=== PATIENT | female | born 1955 | race Caucasian/White ===

== ENCOUNTER 2020-12-03 10:39 | Inpatient (IN) | payer OTHER ==
[~2020-12-03] VITALS: Ht 144.8 cm; Wt 126.6 kg
--- NOTE | 2020-12-03 10:39 | NUR ---
[facility]
[2020-12-03 10:51] VITALS: BP 82/37
[2020-12-03 11:13] LABS: BASOPHILS # (AUTO) 0.1 K/uL (0.00-0.22); EOSINOPHILS # (AUTO) 0.2 K/uL (0-0.4); EOSINOPHILS % (AUTO) 2.5 % (0.0-4.0); HEMATOCRIT 33.8 % (36-48); HEMOGLOBIN 10.3 g/dL (12.0-16.0); LYMPHOCYTES # (AUTO) 1.4 K/uL (2.5-16.5); LYMPHOCYTES % (AUTO) 16.6 % (20.5-51.1); MEAN CORPUSCULAR HEMOGLOBIN 24 pg (27-31); MEAN CORPUSCULAR HGB CONC 30 g/dL (33-37); MEAN CORPUSCULAR VOLUME 77.2 fL (80-94); MONOCYTES # (AUTO) 0.6 K/uL (0.8-1.0); MONOCYTES % (AUTO) 6.8 % (1.7-9.3); NEUTROPHILS # (AUTO) 6.3 K/uL (1.8-7.7); NEUTROPHILS % (AUTO) 73.1 % (42.2-75.2); PLATELET COUNT (AUTO) 167 K/uL (140-450); RED BLOOD CELL COUNT(AUTO) 4.38 MIL/uL (4.20-5.40); RED CELL DISTRIBUTION WIDTH 18.2 % (11.6-13.7); WHITE BLOOD COUNT (AUTO) 8.7 K/uL (4.8-10.8)
[2020-12-03 11:29] LABS: ANION GAP 9.7 (8-16); CARBON DIOXIDE 34.4 mmol/L (21-32); CREATININE 1.1 mg/dL (0.6-1.3); POTASSIUM 4.1 mmol/L (3.5-5.1); TOTAL BILIRUBIN 0.8 mg/dL (0.0-1.0)
[2020-12-03] MEDS ORDERED: ASPI-1822 PO (11:33)
[2020-12-03] MEDS ORDERED: ROPI2TER PO (11:33)
[2020-12-03] MEDS ORDERED: POTA10TE30 PO (11:33)
[2020-12-03] MEDS ORDERED: LOSA100T1 PO (11:33)
[2020-12-03] MEDS ORDERED: SIMV20TA1 PO (11:33)
[2020-12-03] MEDS ORDERED: DETLA4 PO (11:33)
[2020-12-03] MEDS ORDERED: ERGO-30 PO (11:33)
[2020-12-03] MEDS ORDERED: HYDR-5191 PO (11:33)
[2020-12-03] MEDS ORDERED: AMLO10TA PO (11:33)
[2020-12-03] MEDS ORDERED: IBUP-1842 PO (11:33)
[2020-12-03] MEDS ORDERED: ZOLP10TA1 PO (11:33)
[2020-12-03] MEDS ORDERED: GABA300C PO (11:33)
[2020-12-03] MEDS ORDERED: ARIP5TAB8 PO (11:33)
[2020-12-03] MEDS ORDERED: UMEC62.5 IH (11:33)
[2020-12-03] MEDS ORDERED: FLONAS NS (11:33)
[2020-12-03] MEDS ORDERED: SERT100T PO (11:33)
[2020-12-03] MEDS ORDERED: FURO-570 PO (11:33)
--- NOTE | 2020-12-03 11:43 | NUR ---
64 Y/O F BIBA FROM [facility] C/O SOB WITH 02 STAT @75% ON 3L NC. PT WAS PUT ON NON REBREATHER 15L, NOW SAT AT 99%. IN ED, PT IS A&OX4. HEART RATE NORMAL REGULAR RHYTHM. COARSE LUNG SOUNDS ON ALL LUNG CISNEROS. ERMD MADE AWARE OF PT STATUS. PMH: COPD, PULMONARY EDEMA, HEART FAILURE, HTN, HYPERLIPIDEMA, CEREBRAL INFARCTION NKA
[2020-12-03] MEDS ORDERED: methylPREDNISolone SS 125 MG/2 ML VIAL IVP ONE (12:05)
[2020-12-03] MEDS ORDERED: ALBUTEROL SULFATE/IPRATROPIU 3 ML SOL IH ONE ×5 (12:05→13:22)
[2020-12-03] MEDS ORDERED: FUROSEMIDE 100 MG/10 ML VIAL IVP ONE (12:55)
--- NOTE | 2020-12-03 13:09 | NUR ---
RT CALLED FOR ALBUTEROL
--- NOTE | 2020-12-03 13:46 | NUR ---
RT AT BEDSIDE FOR INTERVENTION
[2020-12-03] MEDS ORDERED: ALBUTEROL 0.083% 2.5 MG/3 ML NEBU INH PRN (14:00)
[2020-12-03] MEDS ORDERED: ONDANSETRON 4 MG/2 ML VIAL IVP PRN (14:00)
[2020-12-03] MEDS ORDERED: MORPHINE SULFATE 2 MG/ML SYR IVP PRN (14:00)
--- NOTE | 2020-12-03 14:13 | NUR ---
ELEAZAR COTTO, REQUESTING TO BE CALLED WHEN PT TO BE ADMITTED. CELL NO: [phone]
[2020-12-03] MEDS: FLUTICASONE NASAL 50 MCG/ACTUATION 16 GM BTL NS SCH ×2 (15:46→22:26)
--- NOTE | 2020-12-03 16:27 | NUR ---
BIPAP WAS PLACED AT BEDSIDE FOR USE - TRYING TO CONVINCE PATIENT TO TRY TO WEAR BIPAP DUE TO RESULTS OF ABG. FAMILY TRYING TO CONVINCE PATIENT TO STAY AND TRY TREATMENTS.
--- NOTE | 2020-12-03 16:40 | NUR ---
BIPAP SETTINGS: IPAP- 10, EPAP-5, FIO2-40, RATE-12 O2 SAT- 94%
--- NOTE | 2020-12-03 16:54 | NUR ---
REPORT GIVEN TO AMITA MUSTAFA.
--- NOTE | 2020-12-03 17:22 | NUR ---
TRANSFERRED PT TO THE FLOOR WITH THE RN AND AIDE, PT TRANSFERRED ON NASAL CANNULA AND BIPAP IS PLACED AT BEDSIDE. PT UNDERSTANDS THAT SHE NEEDS TO WEAR THE BIPAP FOR CO2 RETENTION BUT IS NOT HAPPY ABOUT IT AND HAS ALREADY REMOVED IT IN ED ONCE.
--- NOTE | 2020-12-03 17:28 | NUR ---
Patient will be admitted to care of DR FARMER. Admited to TELE. Will go to room 120B. Belongings list completed. Report to AMITA MUSTAFA.
[2020-12-03 17:30] VITALS: BP 108/54
--- NOTE | 2020-12-03 17:30 | NUR ---
PT ARRIVED TO THE UNIT VIA GURNEY. PT IS AWAKE AND ALERT. A&OX4. ON 6L O2 NC WITH O2 SAT AT 90%. BREATHING IS RAPID AND SHALLOW. ON TELE MONITOR, SR. PT IS INCONTINENT. SKIN IS WARM, DRY, AND INTACT. IV IS ON THE RIGHT HAND 20 GAUGE SALINE LOCKED. PT IS STABLE AT THIS TIME.
--- NOTE | 2020-12-03 18:51 | NUR ---
PT IS SITTING UP, EATING IN BED. NO RESPIRATORY DISTRESS NOTED. BREATHING IS UNLABORED. PT IS A&OX4, VERY TALKATIVE. PT IS STABLE.
--- NOTE | 2020-12-03 19:15 | NUR ---
ENDORSED PT TO DAY SHIFT NURSE FOR CONTINUITY OF CARE. PT IS STABLE AT THIS TIME. PLAN OF CARE DISCUSSED.
--- NOTE | 2020-12-03 19:16 | NUR ---
RECEIVED PATIENT FROM AM NURSE FOR CONTINUITY OF CARE. PATIENT IS AWAKE, ALERT AND ORIENT X4. RESTING IN BED, NO SIGN OF DISTRESS. RESPIRATORY EVEN AND UNLABORED, ON 6L OXYGEN NC, O2 SAT 92%. SKIN WARM, DRY, NON DIAPHORETIC. IV ON RIGHT HAND 20G, INTACT AND PATENT, SALINE LOCK. PATIENT IS INCONTINENT, DIAPER DRY AND IN PLACE. PATIENT DENIES ANY PAIN OR DISCOMFORT. ABLE TO MAKE NEED KNOWN. PLAN OF CARE DISCUSSED, PATIENT VERBALIZED UNDERSTANDING. PRECAUTION IN PLACE. HOB ELEVATED. CALL LIGHT WITHIN REACH. WILL CONTINUE TO MONITOR.
--- NOTE | 2020-12-03 19:50 | NUR ---
RT NOTIFIED THAT PATIENT REFUSED TO USE BI PAP. 6L O2 NC IN PLACE. PATIENT IS STABLE. WILL CONTINUE TO MONITOR.
[2020-12-03] MEDS: IPRATROPIUM 0.02% 0.5 MG/2.5 ML NEBU INH SCH (19:55)
[2020-12-03 20:00] VITALS: BP 103/54
--- NOTE | 2020-12-03 20:25 | NUR ---
PATIENT'S DAUGHTER, ELEAZAR CALLED TO UPDATE PATIENT'S CONDITION. SHE CONCERNS THAT PATIENT WILL HAVE BI PAP ORDER. NOTIFIED HER THAT PATIENT REFUSED TO USE BI PAP. STATED SHE WILL CALL AND ENCOURAGE PATIENT TO USE BI PAP. ALL QUESTIONS ANSWER. WILL CONTINUE TO MONITOR PATIENT.
--- NOTE | 2020-12-03 22:04 | NUR ---
TEXT DR FRIAS THAT PATIENT REQUESTS HER AMBIEN AND NORCO HER HOME MEDICATIONS. PER DR FRIAS, RESUME HOME MEDICATIONS WITH AMBIEN 10MG PO HS PRN, AND NORCO 10-325 PO Q6H PRN FOR SEVERE PAIN. WILL FOLLOW ORDER.
[2020-12-03] MEDS: FUROSEMIDE 40 MG/4 ML VIAL IVP SCH (22:26)
[2020-12-03] MEDS: ZOLPIDEM 10 MG TAB PO PRN (22:27)
[2020-12-03] MEDS: HYDROcodone/APAP 10/325 MG 1 TAB TAB PO PRN (22:27)
--- NOTE | 2020-12-03 22:27 | NUR ---
NORCO PRN ADMINISTER WITH EDUCATION, PATIENT REPORTS ACHING PAIN ON HER LEFT KNEE 8/10. PATIENT TOLERATED WELL. NO SIGN OF DISTRESS. PRECAUTION IN PLACE. CALL LIGHT WITHIN REACH. WILL CONTINUE TO MONITOR.
[2020-12-04] VITALS (7 sets, daily range): BP systolic 110–120; BP diastolic 52–73
--- NOTE | 2020-12-04 | NUR ---
ROUND CHECK. PATIENT IS SLEEPING, CHEST RISE AND FALL, BI PAP IN PLACE, NO SIGN OF DISTRESS NOTED. PRECAUTION IN PLACE. CALL LIGHT WITHIN REACH. WILL CONTINUE TO MONITOR.
[2020-12-04] MEDS: IPRATROPIUM 0.02% 0.5 MG/2.5 ML NEBU INH SCH ×4 (01:21→20:35)
--- NOTE | 2020-12-04 02:06 | NUR ---
ROUND CHECK. PATIENT IS SLEEPING, CHEST RISE AND FALL, BI PAP IN PLACE, O2 SAT 95%. NO SIGN OF DISTRESS. PRECAUTION IN PLACE. CALL LIGHT WITHIN REACH. WILL CONTINUE TO MONITOR.
--- NOTE | 2020-12-04 04:00 | NUR ---
ASSIST AUTOMOTIVE ASSEMBLER TO CHANGE PATIENT. PATIENT TOLERATED WELL. NO SIGN OF DISTRESS NOTED. PRECAUTION IN PLACE. CALL LIGHT WITHIN REACH. WILL CONTINUE TO MONITOR.
--- NOTE | 2020-12-04 06:10 | NUR ---
PATIENT AWAKE, RESTING IN BED, NO SIGN OF DISTRESS NOTED. PRECAUTION IN PLACE. WILL CONTINUE TO MONITOR.
[2020-12-04 06:59] LABS: BASOPHILS % (AUTO) 0.2 % (0.0-2.0); HEMATOCRIT 34.3 % (36-48); HEMOGLOBIN 10.5 g/dL (12.0-16.0); LYMPHOCYTES # (AUTO) 0.9 K/uL (2.5-16.5); LYMPHOCYTES % (AUTO) 10.5 % (20.5-51.1); MEAN CORPUSCULAR HEMOGLOBIN 23 pg (27-31); MEAN CORPUSCULAR HGB CONC 31 g/dL (33-37); MEAN CORPUSCULAR VOLUME 76.1 fL (80-94); MONOCYTES # (AUTO) 0.5 K/uL (0.8-1.0); MONOCYTES % (AUTO) 5.3 % (1.7-9.3); NEUTROPHILS # (AUTO) 7.4 K/uL (1.8-7.7); PLATELET COUNT (AUTO) 147 K/uL (140-450); WHITE BLOOD COUNT (AUTO) 8.8 K/uL (4.8-10.8)
--- NOTE | 2020-12-04 07:07 | NUR ---
PATIENT HAS BEEN SCREENED AND CATEGORIZED MODERATE NUTRITION RISK. PATIENT WILL BE SEEN WITHIN 3-5 DAYS OF ADMISSION. 12/06/20-12/08/20 GRACIELA MARQUIS MS, RDN
[2020-12-04 07:14] LABS: ANION GAP 6.9 (8-16); CARBON DIOXIDE 37.8 mmol/L (21-32); CREATININE 1.1 mg/dL (0.6-1.3); POTASSIUM 3.7 mmol/L (3.5-5.1)
--- NOTE | 2020-12-04 07:29 | NUR ---
ENDORSED PATIENT TO AM NURSE FOR CONTINUITY OF CARE. PATIENT IS STABLE.
--- NOTE | 2020-12-04 07:30 | NUR ---
PATIENT RECEIVED FROM AIRCRAFT TIME CLERK RN. PT RESTING IN BED. NO S/SX OF DISTRESS. ON 6L NC 89% O2. CALL LIGHT WITHIN REACH NO SAFETY MEASURES ARE IN PLACE.
[2020-12-04] MEDS: ASPIRIN 81 MG TAB.CHEW PO SCH (08:22)
[2020-12-04] MEDS: ARIPiprazole 10 MG TAB PO SCH (08:22)
[2020-12-04] MEDS: CHOLECALCIFEROL 1,000 IU TAB PO SCH (08:23)
[2020-12-04] MEDS: amLODIPine 5 MG TAB PO SCH (08:24)
[2020-12-04] MEDS: ENOXAPARIN 40 MG/0.4 ML SYR SUBQ SCH (08:26)
[2020-12-04] MEDS: FUROSEMIDE 40 MG/4 ML VIAL IVP SCH ×2 (08:29→20:18)
[2020-12-04] MEDS: HYDROcodone/APAP 10/325 MG 1 TAB TAB PO PRN ×2 (08:35→22:05)
--- NOTE | 2020-12-04 08:36 | NUR ---
MEDICATIONS GIVEN PER MD ORDER. PATIENT EDUCATED AND VERBALIZED UNDERSTANDING . NO S/SX OF DISTRESS. CALL LIGHT WITHIN REACH NO SAFETY MEASURES ARE IN PLACE.
[2020-12-04] MEDS: FLUTICASONE NASAL 50 MCG/ACTUATION 16 GM BTL NS SCH ×2 (09:00→20:18)
--- NOTE | 2020-12-04 10:51 | NUR ---
PT TURNED, REPOSITIONED, AND BED BATH GIVEN PT TOLERATED WELL.
--- NOTE | 2020-12-04 12:20 | NUR ---
PT RESTING IN BED EATING LUNCH FAMILY AT BEDSIDE
--- NOTE | 2020-12-04 14:38 | NUR ---
NEW IV STARTED ON LEFT HAND . PT TOLERATED WELL.
--- NOTE | 2020-12-04 15:55 | NUR ---
PT PLACED ON 4-L NASAL CANULA PT TOLERATING WELL NO S/S OF DISTRESS 95% SISTERS AT BEDSIDE. CALL LIGHT WITHIN REACH NO SAFETY MEASURES ARE IN PLACE.
--- NOTE | 2020-12-04 16:40 | NUR ---
PT REASSESSED. PT TALKING WITH SISTERS. 94% O2. PT TOLERATING WELL. PLACED ON 3 L
--- NOTE | 2020-12-04 17:17 | NUR ---
FAXED DC ORDER TO [facility] AND [facility] FOR BIPAP ORDER, WAITING FOR CALL BACK FROM [facility], WILL ENDORSE.
--- NOTE | 2020-12-04 18:26 | NUR ---
PT AT 92% ON 3L NC. NOS /S OF DISTRESS AT THIS TIME
--- NOTE | 2020-12-04 19:20 | NUR ---
PT ENDORSED TO BEVEL GEAR GENERATOR OPERATOR NURSE FOR CONTINUITY OF CARE. PT STABLE.
--- NOTE | 2020-12-04 19:25 | NUR ---
RECIEVED BEDSIDE ENDORSEMENT FROM DAY SHIFT RN, A&OX4, ABLE TO MAKE NEEDS KNOWN AND FOLLOWS COMMANDS, PT BEDBOUND, ABLE TO ASSIST WITH TURNING, SR ON MONITOR, VSS, NC 3LPM, ABD SOFT AND NON TENDER TO TOUCH, SKIN WARM DRY AND INTACT, LH 22 G PIV SALINE LOCKED, FLUSHED AND PATENT, NO SIGNS OF ACUTE DISTRESS, SAFETY MEASURS IN PLACE, WILL CONTINUE WITH CURRENT POC
--- NOTE | 2020-12-04 20:15 | NUR ---
ADMINISTERED 2100H MEDICATIONS PER MD ORDERS
--- NOTE | 2020-12-04 22:36 | NUR ---
REPOSITIONED PT, CLEARNED PT LINEN AND BED PADS, NO SIGNS OF ACUTE DISTRESS
--- NOTE | 2020-12-04 23:10 | NUR ---
PLACED PT ON NIGHT TIME BI-PAP. PT IS TOLERATING WELL, WILL CONTINUE TO MONITOR
[2020-12-05] VITALS: BP 110/51
--- NOTE | 2020-12-05 00:18 | NUR ---
PT APPEARS TO BE ASLEEP AND SHOWING NO SIGNS OF ACUTE DISTRESS
[2020-12-05] MEDS: IPRATROPIUM 0.02% 0.5 MG/2.5 ML NEBU INH SCH ×4 (00:42→20:15)
--- NOTE | 2020-12-05 00:45 | NUR ---
DISCUSSED WITH PT AT THE 1900 TREATMENT, THE 0100 TREATMENT, PT ASKED IF SHE WAS ASLEEP, IF I COULD LET HER SLEEP, PT STATED SHE HADN'T SLEPT THE NIGHT PREVIOUSLY. PT IS DOING WELL ON BI-PAP, AND HER BREATH SOUNDS ARE CLEAR/DIMINISHED. SPOKE WITH RN REGARDING PRN TREATMENTS IF PT WAKES UP AND REQUIRES BREATHING ASSISTANCE. WILL CONTINUE TO MONITOR
[2020-12-05 04:00] VITALS: BP 159/61
--- NOTE | 2020-12-05 04:20 | NUR ---
RECEIVED CALL FROM RN ABOUT REMOVAL OF BI-PAP, PT WAS COMPLAINING OF DISCOMFORT. REMOVED BI-PAP MASK, PLACED PT ON 4L NASAL CANNULA, PT SATURATION ON CANNULA WAS 93%. WILL CONTINUE TO MONITOR
--- NOTE | 2020-12-05 04:25 | NUR ---
REPOSITIONED PT, CHANGED BIPAP TO NC 4 LPM
[2020-12-05] MEDS: HYDROcodone/APAP 10/325 MG 1 TAB TAB PO PRN ×2 (04:46→11:12)
--- NOTE | 2020-12-05 07:07 | NUR ---
ENDORSED TO DAY SHIFT RN FOR CONTINUITY OF CARE
--- NOTE | 2020-12-05 07:12 | NUR ---
PT RECEIVED FROM CASE MANAGEMENT ASSISTANT RN. PT RESTING IN BED ON 4L-NC AT 94%. NOS/SX OF DISTRESS AT THIS TIME. ALL SAFETY MEASURES ARE IN PLACE
--- NOTE | 2020-12-05 07:57 | NUR ---
PT ON 4L NC, AT 88 % . NO S/S OF DISTRESS AT THIS TIME
[2020-12-05 08:00] VITALS: BP 153/75
--- NOTE | 2020-12-05 08:11 | NUR ---
PT HAD ONE LARGE BM , ASSISTED WITH ADSLS. PT TOLERATED WELL. NO S/S OF DISTRESS AT THIS TIME
[2020-12-05] MEDS: ARIPiprazole 10 MG TAB PO SCH (09:03)
[2020-12-05] MEDS: CHOLECALCIFEROL 1,000 IU TAB PO SCH (09:03)
--- NOTE | 2020-12-05 09:03 | NUR ---
TALKED TO MOY ROSALES MADE AWARE DID NOT RECEIVE A CALL FROM [facility] REGARDING THE BIPAP AND ALSO ASK FOR THE AUTHORIZATION FOR TRANSFER TO [facility]
[2020-12-05] MEDS: amLODIPine 5 MG TAB PO SCH (09:04)
[2020-12-05] MEDS: ASPIRIN 81 MG TAB.CHEW PO SCH (09:04)
[2020-12-05] MEDS: ENOXAPARIN 40 MG/0.4 ML SYR SUBQ SCH (09:08)
[2020-12-05] MEDS: FUROSEMIDE 40 MG/4 ML VIAL IVP SCH ×2 (09:15→20:08)
[2020-12-05] MEDS: FLUTICASONE NASAL 50 MCG/ACTUATION 16 GM BTL NS SCH ×2 (09:15→20:08)
--- NOTE | 2020-12-05 10:00 | NUR ---
PT ON 3L NC 96% TOLERATING WELL NO S/SX OF DISTRESS. PT CHANGED AN REPOSITIONED
[2020-12-05] MEDS: ACETAMINOPHEN 325 MG TAB PO PRN (10:19)
--- NOTE | 2020-12-05 10:19 | NUR ---
PT COMPLAIND OF HEAD ACHE. PRN MEDICATION GIVEN PER MD ORDER. PT EDUCATED
--- NOTE | 2020-12-05 10:39 | NUR ---
CALL PLACE TO CYNDIE, LEAVE MESSAGE REGARDING PT NEED OF BIPAP, PT STABLE TO BE DC TO [facility]
--- NOTE | 2020-12-05 10:49 | NUR ---
PT HAD ANOTHER LARGE BM. PT REPOSITIONED CLEANSED AND PULLED UP.
--- NOTE | 2020-12-05 11:15 | NUR ---
PT HAD LARGE BM LOSE VITOR AND ANGELO
--- NOTE | 2020-12-05 11:37 | NUR ---
FAXED FACE SHEET AND COPY OF ORDER TO CYNIDE [phone], TALKED TO CYNDIE MADE AWARE NEED BIPAP IN [facility] AND AUTHORIZATION FOR TRANSFER TO [facility], PER MOY ROSALES, [facility] ALREADY REACHES OUT TO HER , AWARE OF THE BIPAP ORDER, BIPAP WILL BE PROBABLY AVAILABLE TOMORROW, WILL INFORM PATIENT
[2020-12-05 12:00] VITALS: BP 119/76
--- NOTE | 2020-12-05 12:11 | NUR ---
RECEIVED A CALL FROM CYNDIE , AUTHORIZATION GIVEN FOR THE [employer] [phone], [employer] PHONE NUMBER [phone], WILL CALL [employer].
--- NOTE | 2020-12-05 12:14 | NUR ---
CALL PLACE TO [facility] , DAKSHA PATEL WILL CALL ME BACK FOR THE STATUS OF THE BIPAP.
--- NOTE | 2020-12-05 12:16 | NUR ---
CALL PLACE ALSO TO [facility] GRAPHIC ART TECHNICIAN [facility] TO UPDATE PT TRANSFER
--- NOTE | 2020-12-05 12:26 | NUR ---
PT CHANGED. LARGE BM LOOSE AND YELLOW
--- NOTE | 2020-12-05 13:10 | NUR ---
PT IS DANGLING ON EDGE OF BED. PT GIVEN DIET CARBONATED DRINK TO EASE HER STOMACH PAIN AND CRAMPING.
--- NOTE | 2020-12-05 15:21 | NUR ---
PT ASSISTED TO DANGLE POSITION. PT TOLERATED WELL. ALL SAFETY MEASURES IN PLACE
[2020-12-05 16:00] VITALS: BP 146/77
--- NOTE | 2020-12-05 16:16 | NUR ---
PT CHANGED AND REPOSITIONED. PT COMPLAINS OF 10/10 PAIN PRN MEDICATION GIVEN
--- NOTE | 2020-12-05 18:20 | NUR ---
PT RESTING IN BED. DAUGHTER AT BEDSIDE
--- NOTE | 2020-12-05 19:05 | NUR ---
PT COMPLAINS OF ANXIETY . PRN MEDICATION GIVEN PER MD ORDER. PT TOLERATED WELL EDUCATED AND VERBALIZED UNDERSTANDING
[2020-12-05] MEDS: LORazepam 0.5 MG TAB PO PRN (19:10)
--- NOTE | 2020-12-05 19:27 | NUR ---
PT ENDORSED TO CHEMICAL DETECTION EXPERT RN FOR CONTINUITY OF CARE. PT RESTING IN BED
--- NOTE | 2020-12-05 19:35 | NUR ---
RECIEVED BEDSIDE ENDORSEMENT FROM DAY SHIFT RN, A&OX4, ABLE TO MAKE NEEDS KNOWN AND FOLLOWS SIMPLE COMMANDS, PT BEDBOUND, ABLE TO ASSIST WITH TURNING, SR ON MONITOR, VSS, NC 2LPM, ABD SOFT AND NON TENDER TO TOUCH, SKIN WARM DRY AND INTACT, LH 22 G PIV SALINE LOCKED, FLUSHED AND PATENT, NO SIGNS OF ACUTE DISTRESS, SAFETY MEASURES IN PLACE, WILL CONTINUE WITH CURRENT POC
[2020-12-05 20:00] VITALS: BP 141/66
--- NOTE | 2020-12-05 20:45 | NUR ---
ADMINISTERED NASAL MEDICAITON, PT REFUSED ADMINISTRATION OF LASIX IVP
--- NOTE | 2020-12-05 21:57 | NUR ---
PT IS READY FOR BED AND NOC NIV HAS BEEN INITIATED W/ SAME SETTINGS THEY WERE ON STDBY 03/08 f12 40%. BIPAP IS PLUGGED INTO RED OUTLET W/ ALARMS ON AND AUDIBLE WILL CONTINUE TO MONITOR.
--- NOTE | 2020-12-05 22:10 | NUR ---
PT ON BIPAP FOR PM ROUTINE
[2020-12-06] VITALS: BP 147/69
--- NOTE | 2020-12-06 01:26 | NUR ---
PT WOKE UP AND WANTED TO DC THE BIPAP, SWITCHED TO NC 3LPM W/ SATURATION 92%, RT AWARE OF CHANGE
--- NOTE | 2020-12-06 01:28 | NUR ---
PT AWAKE AND ALERT ON 3LNC W/ NO DISTRESS NOTED BIPAP ON STDBY AND REMAINS PLUGGED INTO RED OUTLET WILL CONTINUE TO MONITOR
--- NOTE | 2020-12-06 03:03 | NUR ---
ASSISTED PT TO REPOSITION AND SIT ON THE EDGE OF BED TO DANGLE FEET
[2020-12-06] MEDS: HYDROcodone/APAP 10/325 MG 1 TAB TAB PO PRN (03:45)
--- NOTE | 2020-12-06 03:46 | NUR ---
ASSISTED PT TO SIT ON EDGE OF BED AND DANGLE GEET, COMPLAINING OF BACK PAIN 8/10 PAIN SCALE, ADMINISTERED 10MG NORCO
[2020-12-06 04:00] VITALS: BP 128/71
--- NOTE | 2020-12-06 06:37 | NUR ---
ASSISTED PT W/ SITTING ON EDGE OF BED TO DANGLE FEET
--- NOTE | 2020-12-06 07:15 | NUR ---
RECEIVED BEDSIDE REPORT FROM CERTIFIED ETHICAL HACKER NURSE FOR CONTINUITY OF CARE. PT IS AWAKE AND ALERT. A&OX4. ON 3L O2 NC WITH BREATHING UNLABORED. BIPAP AT NIGHT. ON TELE MONITORING. PT IS BEDBOUND. INCONTINENT WITH DRY DIAPER IN PLACE. SKIN IS WARM, DRY, AND INTACT. IV IS IN THE LEFT HAND 22 GAUGE SALINE LOCKED. PT IS STABLE AT THIS TIME. PLAN OF CARE DISCUSSED.
--- NOTE | 2020-12-06 07:35 | NUR ---
ENDORSED TO DAY SHIFT RN FOR CONTINUITY OF CARE
[2020-12-06] MEDS: IPRATROPIUM 0.02% 0.5 MG/2.5 ML NEBU INH SCH ×3 (07:56→19:00)
[2020-12-06 08:00] VITALS: BP 131/54
[2020-12-06] MEDS: FUROSEMIDE 40 MG/4 ML VIAL IVP SCH (08:22)
[2020-12-06] MEDS: CHOLECALCIFEROL 1,000 IU TAB PO SCH (08:26)
[2020-12-06] MEDS: FLUTICASONE NASAL 50 MCG/ACTUATION 16 GM BTL NS SCH ×2 (08:27→20:06)
[2020-12-06] MEDS: ASPIRIN 81 MG TAB.CHEW PO SCH (08:27)
[2020-12-06] MEDS: ARIPiprazole 10 MG TAB PO SCH (08:27)
[2020-12-06] MEDS: amLODIPine 5 MG TAB PO SCH (08:27)
[2020-12-06] MEDS: ENOXAPARIN 40 MG/0.4 ML SYR SUBQ SCH (08:28)
--- NOTE | 2020-12-06 09:30 | NUR ---
PT IS AWAKE AND ALERT. A&OX4. NO RESPIRATORY DISTRESS NOTED ON 3L O2 NC. IV IS PATENT AND FLUSHING WELL. ON TELE MONITOR. PT HAD AN EPISODE OF DIARRHEA. LIGHT BROWN IN COLOR AND MODERATE IN SIZE. PT WAS CHANGED AND REPOSITIONED.
--- NOTE | 2020-12-06 11:15 | NUR ---
PT HAD ANOTHER EPISODE OF LOOSE STOOL. SMALL IN SIZE AND BROWN IN COLOR. PT WAS CHANGED AND REPOSITIONED.
[2020-12-06 12:00] VITALS: BP 109/45
--- NOTE | 2020-12-06 12:18 | NUR ---
CALLED DR. HOU AND INFORMED HIM THAT PT IS HAVING LOOSE STOOLS X 4 TODAY. ALSO TOLD HIM THE STOOL WAS LIGHT BROWN IN COLOR. DOCTOR ORDERED 2 MG PO IMODIUM ONCE.
[2020-12-06] MEDS ORDERED: Z-GUARD PASTE TP PRN (12:20)
[2020-12-06] MEDS ORDERED: LOPERAMIDE 2 MG CAP PO SCH (12:45)
--- NOTE | 2020-12-06 12:49 | NUR ---
PT WAS GIVEN IMODIUM FOR MULTIPLE EPISODES OF DIARRHEA. DIAPER IS CURRENTLY DRY AND INTACT. Z GUARD WAS APPLIED TO PERINEAL AREA AND BUTTOCKS FOR INCONTINENT REDNESS. PT DENIES PAIN AT THIS TIME.
[2020-12-06 13:27] LABS: BASOPHILS # (AUTO) 0.1 K/uL (0.00-0.22); BASOPHILS % (AUTO) 0.8 % (0.0-2.0); EOSINOPHILS # (AUTO) 0.2 K/uL (0-0.4); EOSINOPHILS % (AUTO) 1.6 % (0.0-4.0); HEMATOCRIT 37.7 % (36-48); HEMOGLOBIN 11.6 g/dL (12.0-16.0); LYMPHOCYTES # (AUTO) 1.5 K/uL (2.5-16.5); LYMPHOCYTES % (AUTO) 15.9 % (20.5-51.1); MEAN CORPUSCULAR HEMOGLOBIN 23 pg (27-31); MEAN CORPUSCULAR HGB CONC 31 g/dL (33-37); MEAN CORPUSCULAR VOLUME 75.8 fL (80-94); MONOCYTES # (AUTO) 0.6 K/uL (0.8-1.0); MONOCYTES % (AUTO) 6.6 % (1.7-9.3); NEUTROPHILS # (AUTO) 7.2 K/uL (1.8-7.7); NEUTROPHILS % (AUTO) 75.1 % (42.2-75.2); PLATELET COUNT (AUTO) 194 K/uL (140-450); RED BLOOD CELL COUNT(AUTO) 4.97 MIL/uL (4.20-5.40); RED CELL DISTRIBUTION WIDTH 17.8 % (11.6-13.7); WHITE BLOOD COUNT (AUTO) 9.6 K/uL (4.8-10.8)
[2020-12-06 13:39] LABS: ALBUMIN 3.7 g/dL (3.4-5.0); ANION GAP 8.6 (8-16); MAGNESIUM 1.4 mg/dL (1.8-2.4); TOTAL BILIRUBIN 1.4 mg/dL (0.0-1.0)
[2020-12-06 13:41] LABS: POTASSIUM 2.7 mmol/L (3.5-5.1)
[2020-12-06 13:42] LABS: CARBON DIOXIDE 41.1 mmol/L (21-32)
--- NOTE | 2020-12-06 13:42 | NUR ---
ROUNDED ON PT. SHE IS AWAKE AND ALERT. DIAPER IS SOILED. PT WAS CHANGED AND REPOSITIONED. PT TOLERATED MOVEMENT WELL. PT IS STABLE.
--- NOTE | 2020-12-06 13:46 | NUR ---
RECEIVED CRITICAL LAB FROM [facility]. POTASSIUM LEVEL 2.7, CO2 41.1, AND MAGNESIUM 1.4. TEXTED DR. HOU TO NOTIFY HIM OF THE CRITICAL LAB. WILL WAIT FOR RESPONSE.
--- NOTE | 2020-12-06 13:47 | NUR ---
Barbara from [facility] called back after I left her a message and gave me the Auth number for [facility] [id number], Also gave the transportation Auth number [id number]. Contacted Christiana at [facility] to give her the auth number for the facility and get a room number. Spoke to the charge nurse and said will contact Christiana and get back to me.
--- NOTE | 2020-12-06 13:50 | NUR ---
RECEIVED TEXT BACK FROM DR. HOU TO PLACE ORDER FOR POTASSIUM 40 MEQ Q 6H X 2 DOSES, MAGNESIUM SULFATE 4 GM X 1 DOSE, AND STOP IV LASIX. Addendum: 12/06/20 at 1409 by Mounika Sinha RN POTASSIUM PO AND MAGNESIUM IV
--- NOTE | 2020-12-06 13:57 | NUR ---
ASKED DR. HOU IF HE WOULD LIKE TO HOLD OFF ON POSSIBLE DISCHARGE OF PT TODAY. DOCTOR RESPONDED YES TO NOT DISCHARGING PT TODAY. MARQUISE, CMM INSPECTOR, WAS NOTIFIED OF THIS INFORMATION.
[2020-12-06] MEDS ORDERED: KCL 20 MEQ/WATER INJ PREMIX 200 ML IV ONE ×2 (14:00→22:00)
[2020-12-06] MEDS ORDERED: POTASSIUM CHLORIDE 10 MEQ TABER PO SCH ×2 (14:14→20:30)
--- NOTE | 2020-12-06 14:23 | NUR ---
PULLED OUT TWO BAGS OF MAGNESIUM ONLY AT 2 GRAMS. REPORTED THIS TO PHARMACY, THEY ARE GOING TO DO A CYCLE COUNT.
[2020-12-06] MEDS: MAG SULF 2000 MG/WATER PREMIX 50 ML IV SCH ×2 (14:28→17:07)
--- NOTE | 2020-12-06 14:28 | NUR ---
PT WAS GIVEN POTASSIUM PO 40 MEQ ORDERED FOR POTASSIUM OF 2.7. ANOTHER 40 MEQ POTASSIUM WAS ORDERED FOR 2009 PM. MAGNESIUM SULFATE 4 GRAM WAS STARTED IV FOR MAGNESIUM LEVEL OF 1.4. IV IS PATENT AND FLUSHING WELL. EDUCATION WAS PROVIDED AND PT VERBALIZED UNDERSTANDING. VERIFIED BY SECOND RNLAKSHMI.
[2020-12-06 16:00] VITALS: BP 119/55
--- NOTE | 2020-12-06 17:07 | NUR ---
SECOND BAG OF MAGNESIUM SULFATE WAS STARTED. TOTAL OF 4 GRAMS BEING INFUSED IN PATIENT FOR 1.4 MAGNESIUM LEVEL. VERIFIED BY SECOND RN. EDUCATION WAS PROVIDED AND PT VERBALIZED UNDERSTANDING.
[2020-12-06] MEDS: LORazepam 0.5 MG TAB PO PRN (17:19)
--- NOTE | 2020-12-06 17:19 | NUR ---
PT WAS GIVEN ATIVAN FOR ANXIETY. PT STATES SHE HAS BEEN FEELING ANXIOUS. BP WAS 119/55 PRIOR TO ADMINISTRATION OF MEDICATION. WILL MONITOR ANXIETY.
--- NOTE | 2020-12-06 19:25 | NUR ---
ENDORSED PT TO MUSICIAN INSTRUMENTAL NURSE FOR CONTINUITY OF CARE. PT IS AWAKE AND ALERT. PT STABLE AT THIS TIME. PLAN OF CARE DISCUSSED.
--- NOTE | 2020-12-06 19:30 | NUR ---
RECIEVED BEDSIDE ENDORSEMENT FROM DAY SHIFT RN, A&OX4, ABLE TO MAKE NEEDS KNOWN AND FOLLOWS SIMPLE COMMANDS, PT BEDBOUND, ABLE TO ASSIST WITH TURNING, ST ON MONITOR, VSS, NC 3LPM, ABD SOFT AND NON TENDER TO TOUCH, SKIN WARM DRY AND INTACT, LH 22 G PIV SALINE LOCKED, FLUSHED AND PATENT, NO SIGNS OF ACUTE DISTRESS, SAFETY MEASURES IN PLACE, WILL CONTINUE WITH CURRENT POC
[2020-12-06 20:00] VITALS: BP 132/57
--- NOTE | 2020-12-06 20:30 | NUR ---
ADMINISTERED 2030H AND 2100H MEDICAITON PER MD ORDERS
--- NOTE | 2020-12-06 21:35 | NUR ---
PT DEVAUGHN IVERSON AND IS READY TO GO TO BED
[2020-12-06] MEDS: ZOLPIDEM 10 MG TAB PO PRN (21:39)
--- NOTE | 2020-12-06 21:47 | NUR ---
CALLED TO BEDSIDE PT IS READY FOR BED 3LNC REMOVED AND NOC NIV WAS INITIATED W/ SETTINGS THEY WERE ON STDBY ( 03/08 f12 40% ). BIPAP PLUGGED INTO RED OUTLET W/ ALARMS ON AND AUDIBLE WILL CONTINUE TO MONITOR.
--- NOTE | 2020-12-06 21:55 | NUR ---
CLEANED PT AND CHANGED LINEN, ASISSTED PT IN TURNING
--- NOTE | 2020-12-06 23:39 | NUR ---
PT APPEARS TO BE ASLEEP AND SHOWING NO SIGNS OF ACUTE DISTRESS
[2020-12-07] VITALS: BP 115/56
[2020-12-07] MEDS: IPRATROPIUM 0.02% 0.5 MG/2.5 ML NEBU INH SCH ×4 (00:58→19:13)
--- NOTE | 2020-12-07 01:49 | NUR ---
ASSISTED PT IN REPOSITIONING AND CHANGED PTS LINEN, PROVIDED ANALY CARE
--- NOTE | 2020-12-07 03:39 | NUR ---
PT APPEARS TO BE ASLEEP AND SHOWING NO SIGNS OF ACUTE DISTRESS
[2020-12-07 04:00] VITALS: BP 149/74
--- NOTE | 2020-12-07 06:37 | NUR ---
REPOSITIONED PT, CHANGED PT LINEN AND DID ANALY CARE
--- NOTE | 2020-12-07 07:30 | NUR ---
BEDSIDE REPORT RECEIVED FROM BAGEL MAKER NURSE, PT AWAKE ALERT ORIENTED X4, RESP EVEN UNLABORED ON NC O2, SKIN WARM DRY COLOR WNL, ABD SOFT NON DISTENDED, IV TO LEFT AND 22G SL, SITE WNL, PT ON NURSING EDUCATION CONSULTANT, ST HR 105, O2SAT 95%, ALL SAFETY MEASURES IN PLACE, PLAN OF CARE DISCUSSED, PT REPORTS FEELING ANXIOUS WANTS ANXIETY MEDICATION, WILL MEDICATE WITH PRN ATIVAN.
--- NOTE | 2020-12-07 07:31 | NUR ---
ENDORSED TO DAY SHIFT RN FOR CONTINUITY OF CARE
--- NOTE | 2020-12-07 07:41 | NUR ---
MOD AMT OF SOFT BROWN STOOL X1, PERICARE DONE, PT WITH REDNESS TO PERIANAL AREA, CLEANED AND APPLIED Z GUARD.
[2020-12-07] MEDS: LORazepam 0.5 MG TAB PO PRN (07:54)
--- NOTE | 2020-12-07 07:55 | NUR ---
PT STATES SHE FEELS ANXIOUS. PROVIDED RELAXATION TECHNIQUES AND PRN MEDICATION PER MD ORDER. ALL SAFETY MEASURES ARE IN PLACE. CALL LIGHT WITHIN REACH.
[2020-12-07 08:00] VITALS: BP_SYST 129; BP_SYST 146; BP_DIAS 68; BP_DIAS 84
[2020-12-07] MEDS: amLODIPine 5 MG TAB PO SCH (08:14)
[2020-12-07] MEDS: CHOLECALCIFEROL 1,000 IU TAB PO SCH (08:15)
[2020-12-07] MEDS: ASPIRIN 81 MG TAB.CHEW PO SCH (08:15)
[2020-12-07] MEDS: ARIPiprazole 10 MG TAB PO SCH (08:16)
[2020-12-07] MEDS ORDERED: CRUSHER, PILL MC ONE (08:17)
--- NOTE | 2020-12-07 08:20 | NUR ---
SCHEDULED MEDICATION GIVEN. PT TOLERATED PILLS. PT SITTING UP AT SIDE OF BED FOR BREAKFAST. AWAITING MORNING LABS BEFORE LOVENOX GIVEN.
[2020-12-07 09:14] LABS: EOSINOPHILS # (AUTO) 0.2 K/uL (0-0.4); HEMOGLOBIN 11.9 g/dL (12.0-16.0); MEAN CORPUSCULAR VOLUME 74.4 fL (80-94); MONOCYTES # (AUTO) 0.7 K/uL (0.8-1.0)
[2020-12-07 09:19] LABS: ANION GAP 8.5 (8-16); CARBON DIOXIDE 38.9 mmol/L (21-32); CREATININE 1.1 mg/dL (0.6-1.3); POTASSIUM 3.4 mmol/L (3.5-5.1)
[2020-12-07 09:20] LABS: BASOPHILS % (AUTO) 0.3 % (0.0-2.0); EOSINOPHILS % (AUTO) 1.3 % (0.0-4.0); HEMATOCRIT 38.5 % (36-48); LYMPHOCYTES # (AUTO) 1.3 K/uL (2.5-16.5); LYMPHOCYTES % (AUTO) 11.1 % (20.5-51.1); MEAN CORPUSCULAR HEMOGLOBIN 23 pg (27-31); MEAN CORPUSCULAR HGB CONC 31 g/dL (33-37); MONOCYTES % (AUTO) 6.3 % (1.7-9.3); NEUTROPHILS # (AUTO) 9.4 K/uL (1.8-7.7); PLATELET COUNT (AUTO) 189 K/uL (140-450); RED BLOOD CELL COUNT(AUTO) 5.17 MIL/uL (4.20-5.40); RED CELL DISTRIBUTION WIDTH 17.9 % (11.6-13.7); WHITE BLOOD COUNT (AUTO) 11.6 K/uL (4.8-10.8)
--- NOTE | 2020-12-07 09:37 | NUR ---
BEDBATH GIVEN BY MANAGER LIFE SCIENCES, SMALL BM X1, PERICARE DONE.
[2020-12-07] MEDS: FLUTICASONE NASAL 50 MCG/ACTUATION 16 GM BTL NS SCH ×2 (09:38→20:18)
[2020-12-07] MEDS: ENOXAPARIN 40 MG/0.4 ML SYR SUBQ SCH (09:47)
--- NOTE | 2020-12-07 10:50 | NUR ---
SPOKE WITH PT'S DAUGHTER, UPDATED HER ON PT STATUS. PT DAUGHTER HAS NO FURTHER QUESTIONS.
--- NOTE | 2020-12-07 11:10 | NUR ---
DR HOU NOTIFIED OF K=3.4, TELEPHONE ORDER RECEIVED.
[2020-12-07] MEDS ORDERED: POTASSIUM CHLORIDE 10 MEQ TABER PO SCH (11:15)
--- NOTE | 2020-12-07 11:25 | NUR ---
LOOSE BM, PERICARE DONE.
--- NOTE | 2020-12-07 11:27 | NUR ---
DC PLANNING: CALLED [facility] [phone] SPOKE WITH ELOY STATED THE DIAGNOSIS CODE NEEDS TO BE CHANGED AND PAPERWORK TO BE FAXED. CALLED [facility] SPOKE WITH MOY WILL CHANGE THE [facility] CODE AND E MAIL IT TO THEM. SPOKE WITH [facility] SPOKE WITH [facility] AWAITING FOR C-PAP. CM TO FOLLOW Addendum: 12/07/20 at 1639 by Kierra Matthews RN DC PLANNING: CALLED [facility] AT 9AM SPOKE WITH ELOY CHECKED THE DELIVERY TIME, PER [facility] FAXED THE WRONG CODE FOR AUTHORIZATION. CALLED [facility] SPOKE WITH MOY STATED WILL SUBMIT THE NEW ONE. CHECKED WITH [facility] STATED DIDN'T RECEIVE ANY, CALLED MOY STATED STILL TRYING TO FIX IT PER ELOY THE WINDOWS [employer] ADMINISTRATOR IS OUT BY 2:30 AND WILL DELIVER THE C-PAP TOMORROW TO [facility]. CM TO FOLLOW Addendum: 12/08/20 at 1215 by Kierra Matthews RN DC PLANNING: RECEIVED A CALL FROM [facility] SPOKE WITH TERESA THE WINDOWS [employer] ADMINISTRATOR STATED HE WILL BE AT [facility] BETWEEN 2-4 PM NOTIFIED [facility] MOLINA. CM TO FOLLOW Addendum: 12/08/20 at 1446 by Kierra Matthews RN DC PLANNING: RECEIVED AUTH # FOR SNF [id number] FOR [facility]AGON. FANY ARAGON CAN GO TO ROOM NUMBER 20, # TO GIVE REPORT [phone]. ARRANGED TRANSPORT WITH [facility] B[facility]ER TIME 6 PM . AWAITING FOR C-PAP TO BE DELIVERED AT THE HOSPITAL. ETA FROM [facility] IS BETWEEN 2-4 PM. CM TO FOLLOW
--- NOTE | 2020-12-07 11:30 | NUR ---
PT STATES PAIN IN ABDOMEN 8/10. PAIN IS SHARP AND CONSISTENT, HURTS WORSE WITH MOVEMENT. PROVIDED REPOSITIONING. WILL PROVIDE PAIN MEDICATION PRN PER MD ORDER.
[2020-12-07] MEDS: HYDROcodone/APAP 10/325 MG 1 TAB TAB PO PRN ×2 (11:31→20:24)
--- NOTE | 2020-12-07 11:35 | NUR ---
PAIN MEDICATION PROVIDED PER MD ORDER. PT TOLERATED.ALL SAFETY MEASURES ARE IN PLACE.
[2020-12-07 12:00] VITALS: BP 115/32
--- NOTE | 2020-12-07 12:15 | NUR ---
PATIENT SITING AT SIDE OF BED, EATING LUNCH. PATIENT TOLERATING. NO SL/S OF DISTRESS. CALL LIGHT WITHIN REACH.
--- NOTE | 2020-12-07 13:00 | NUR ---
ASSISTED PT TO LAYING SUPINE IN BED. PT STATES 0/1O PAIN. BLOOD PRESSURE 122/59, O2 99%. PT ABLE TO MAKE NEEDS KNOWN. ALL SAFETY MEASURES IN PLACE.
--- NOTE | 2020-12-07 14:43 | NUR ---
PER LOREN RAINES, PT UNABLE TO TRANSFER BACK TODAY BECAUSE BIPAP MACHINE WILL NOT BE DELIVERED TO [facility] UNTIL TOMORROW, DELIVERY SCHEDULED TOMORROW, PLAN TO DISCHARGE TOMORROW, PT AND DAUGHTER ELEAZAR INFORMED OF THE PLAN.
--- NOTE | 2020-12-07 15:51 | NUR ---
PT VOIDED. PROVIDED ANALY CARE AND READJUSTED PT IN BED. PT TOLERATED. NO S/S OF DISTRESS. ALL SAFETY MEASURES ARE IN PLACE.
[2020-12-07 16:00] VITALS: BP 115/45
--- NOTE | 2020-12-07 16:55 | NUR ---
PT VOIDED. PROVIDED ANALY CARE AND READJUSTED PT IN BED. PT TOLERATED. CALL LIGHT WITHIN REACH.
--- NOTE | 2020-12-07 18:32 | NUR ---
PT EATING DINNER AT BEDSIDE. ASSISTED PT TO LAYING SUPINE IN BED. PT ABLE TO MAKE NEEDS KNOWN. ALL SAFETY MEASURES IN PLACE.
--- NOTE | 2020-12-07 18:40 | NUR ---
TITRATED PT TO 4L O2 VIA NC. O2 SATS 95-97% PT TOLERATING. NO S/S OF DISTRESS. CALL LIGHT WITHIN REACH.
--- NOTE | 2020-12-07 19:15 | NUR ---
ENDORSED PT TO SLOT FLOOR SUPERVISOR NURSE FOR CONTINUITY OF CARE. PT IS A&OX4. PT STABLE AT THIS TIME.
--- NOTE | 2020-12-07 19:16 | NUR ---
RECEIVED REPORT FROM MORNING SHIFT RN. PATIENT IN BED AWAKE, ALERT, WELL RESTED. NO ACUTE DISTRESS NOTED. DENIES PAIN. CALL LIGHT WITHIN REACH
[2020-12-07 20:00] VITALS: BP 141/62
[2020-12-07] MEDS: ZOLPIDEM 10 MG TAB PO PRN (20:21)
--- NOTE | 2020-12-07 20:25 | NUR ---
COMPLAINED OF SEVERE LEFT LEG PAIN/ (8). NORCO PRN GIVEN ORDERED.
--- NOTE | 2020-12-07 21:00 | NUR ---
PLACED PT ON NOC BI-PAP, SETTINGS 10/5, RR-12, 40%. PT TOLERATING WELL, WILL CONTINUE TO MONITOR
--- NOTE | 2020-12-07 23:59 | NUR ---
PT TOOK OUT HER BIPAP, RT MADE AWARE.
--- NOTE | 2020-12-08 00:30 | NUR ---
BIPAP IN PLACE.
[2020-12-08 00:51] VITALS: BP 151/70
[2020-12-08] MEDS: IPRATROPIUM 0.02% 0.5 MG/2.5 ML NEBU INH SCH ×3 (01:00→13:32)
--- NOTE | 2020-12-08 02:58 | NUR ---
REMOVED NOC BI-PAP DUE TO PATIENT COMFORT. PT HAD REMOVED BI-PAP PREVIOUSLY, WHEN I ENTERED THE ROOM TO DO MY 300AM CHECK THE RN AND JIG MILL OPERATOR WERE AT BEDSIDE AND THE PT HAD REMOVED THE BI-PAP MASK, I EXPLAINED TO THE PT THE NEED FOR HER TO WEAR THE BI-PAP AND THE RISK ASSOCIATED WITH REMOVING THE BI-PAP. PT UNDERSTANDS AND STILL WOULD PREFER TO HAVE THE BI-PAP OFF, I PLACED THE PT ON HUMIDIFIED 4L NASAL CANNULA, PT IS IN NO DISTRESS AND SATURATIONS ARE ABOVE 92%, WILL CONTINUE TO MONITOR
[2020-12-08] MEDS: HYDROcodone/APAP 10/325 MG 1 TAB TAB PO PRN ×2 (03:03→13:14)
--- NOTE | 2020-12-08 03:03 | NUR ---
COMPLAINED OF SEVERE LEFT LEG PAIN, NORCO PRN GIVEN PER MD ORDERED.
[2020-12-08 04:00] VITALS: BP 141/62
--- NOTE | 2020-12-08 07:18 | NUR ---
ENDORSED TO AM RN FOR CONTINUITY OF CARE. PATIENT IS STABLE.
--- NOTE | 2020-12-08 07:20 | NUR ---
RECEIVED BEDSIDE ENDORSEMENT FROM DEPUTY INSURANCE COMMISSIONER RN. PT APPEARS TO BE SLEEPING. PT ON 4L O2 VIA NC, 02 SAT WITHIN NORMAL LIMITS. SAFETY MEASURES ARE IN PLACE. CALL LIGHT WITHIN REACH.
--- NOTE | 2020-12-08 07:34 | NUR ---
SATURATION 96% ON SUPPLEMENTAL OXYGEN AT 5 LPM VIA NC POST HHN THERAPY TITRATED FIO2 TO 4 LPM NANCY/RN NOTIFIED
[2020-12-08 08:00] VITALS: BP 153/68
[2020-12-08] MEDS: CHOLECALCIFEROL 1,000 IU TAB PO SCH (08:04)
[2020-12-08] MEDS: LORazepam 0.5 MG TAB PO PRN ×2 (08:05→15:45)
[2020-12-08] MEDS: ARIPiprazole 10 MG TAB PO SCH (08:05)
[2020-12-08] MEDS: amLODIPine 5 MG TAB PO SCH (08:05)
--- NOTE | 2020-12-08 08:05 | NUR ---
PT ROUNDED ON. PT ON 3L O2 95% . PT EATING BREAKFAST TOLERATING WELL.
[2020-12-08] MEDS: ENOXAPARIN 40 MG/0.4 ML SYR SUBQ SCH (08:10)
[2020-12-08] MEDS: FLUTICASONE NASAL 50 MCG/ACTUATION 16 GM BTL NS SCH (09:00)
[2020-12-08] MEDS: ASPIRIN 81 MG TAB.CHEW PO SCH (09:43)
--- NOTE | 2020-12-08 09:45 | NUR ---
PATIENT MEDICATIONS GIVEN PER MD ORDER. PT EDUCATED VERBALIZED UNDERSTANDING . NO S.SX OF DISTRESS AT THIS TIME.
--- NOTE | 2020-12-08 11:50 | NUR ---
PT DANGLING IN BED. PT TOLERATING WELL.
[2020-12-08 12:00] VITALS: BP 137/54
--- NOTE | 2020-12-08 13:12 | NUR ---
PT PULLED UP AND REPOSITIONED. PT TOLERATED WELL. FAMILY AT BED SIDE. ALL SAFETY MEASURES ARE IN PLACE
--- NOTE | 2020-12-08 13:14 | NUR ---
PT STATES 8/10 PAIN IN LEFT KNEE. PT STATES PAIN SHARP AND HURTS WORSE WITH MOVEMENT. PROVIDED PRN MEDICATION PER MD ORDER AND REPOSITIONING. WILL REEVALUATE PAIN ASSESSMENT.
--- NOTE | 2020-12-08 13:52 | NUR ---
ONE LARGE BM. PT TOLERATED WELL.
--- NOTE | 2020-12-08 15:25 | NUR ---
GAVE REPORT TO SANJU, NURSE AT [facility]. UPDATED HIM ON PATIENT STATUS. NO FURTHER QUESTIONS AT THIS TIME.
--- NOTE | 2020-12-08 15:50 | NUR ---
PT STATES 7/10 PAIN IN LEFT KNEE. PT DID NOT WANT MORPHINE, SO GAVE TYLENOL PER MD ORDER. WILL REEVALUATE PAIN. PT TOLERATED.
[2020-12-08] MEDS: ACETAMINOPHEN 325 MG TAB PO PRN (15:54)
[2020-12-08 16:00] VITALS: BP 115/57
--- NOTE | 2020-12-08 17:45 | NUR ---
PT DISCHARGE INSTRUCTIONS COMPLETE. PT EDUCATED AND VERBALIZED UNDERSTANDING. REPORT GIVEN TO [facility]. THEY VERBALIZED UNDERSTANDING ABOUT PTS BELONGINGS AND ROOM NUMBER. PTS IV REMOVED CANULA INTACT . ARM BANDS REMOVED. TELE MONITOR REMOVED AND RETURNED TO UNIT. PT LEFT ON 3L 98% AND IN STABLE CONDITION.
[2020-12-29] MEDS ORDERED: LEVO750T51 PO (10:58)
[2020-12-29] MEDS ORDERED: FURO-570 PO (11:01)
== END 2020-12-08 17:55 | DRG 291 ==
LOC: MED 10:39 → MTU 14:02
PROVIDERS: ADMIT Hospitalist; ATTEND Hospitalist
PROC: 5A09357 Assistance with Respiratory Ventilation, Less than 24 Consecutive Hours, Continuous Positive Airway Pressure (ICD-10-PCS; principal; 2020-12-04)
PROC: 5A09357 Assistance with Respiratory Ventilation, Less than 24 Consecutive Hours, Continuous Positive Airway Pressure (ICD-10-PCS; 2020-12-04)
PROC: 5A09357 Assistance with Respiratory Ventilation, Less than 24 Consecutive Hours, Continuous Positive Airway Pressure (ICD-10-PCS; 2020-12-05)
PROC: 5A09357 Assistance with Respiratory Ventilation, Less than 24 Consecutive Hours, Continuous Positive Airway Pressure (ICD-10-PCS; 2020-12-06)
PROC: 5A09357 Assistance with Respiratory Ventilation, Less than 24 Consecutive Hours, Continuous Positive Airway Pressure (ICD-10-PCS; 2020-12-07)
DX: I11.0 Hypertensive heart disease with heart failure (principal); J96.91 Respiratory failure, unspecified with hypoxia; J96.92 Respiratory failure, unspecified with hypercapnia; Z68.44 Body mass index [BMI] 60.0-69.9, adult; I50.33 Acute on chronic diastolic (congestive) heart failure; Z20.822 Contact with and (suspected) exposure to COVID-19; J44.9 Chronic obstructive pulmonary disease, unspecified; Z99.81 Dependence on supplemental oxygen; Z86.73 Personal history of transient ischemic attack (TIA), and cerebral infarction without residual deficits; E66.01 Morbid (severe) obesity due to excess calories; D64.9 Anemia, unspecified
CPT/HCPCS: 36415; 36600; 71045; 80048; 80053; 82803; 83605; 83735; 83880; 84484; 85025; 85379; 87040; 87081; 93005; 94640; 94660; 96374; 96375; 99291; J1650; J1940; J2270; J2405; J2930; J3475; J7644